=== PATIENT | female | born 1975 | race Caucasian/White ===

== ENCOUNTER → 2016-12-14 | Outpatient (CLI) | payer OTHER | LOC: FIMAGING 09:26 | PROVIDERS: ATTEND Family Medicine | DX: Z12.39 Encounter for other screening for malignant neoplasm of breast (principal); R92.8 Other abnormal and inconclusive findings on diagnostic imaging of breast | CPT/HCPCS: G0204 ==

== ENCOUNTER → 2016-12-24 | Outpatient (CLI) | payer OTHER ==
[~2016-12-24] MED LIST: BUPIVACAINE 0.5% 10 ML SDV ONE; LIDO/EPI 1% **Not for Epidural 20 ML MDV ONE; LIDOCAINE 1% 300 MG/30 ML SDV ONE; THROMBIN (BOVINE) 5,000 UNIT VIAL TP ONE
== END ==
LOC: FIMAGING 07:11
PROVIDERS: ATTEND Family Medicine
PROC: BH01ZZZ Plain Radiography of Left Breast (ICD-10-PCS; principal; 2016-12-24)
PROC: 0HBU3ZX Excision of Left Breast, Percutaneous Approach, Diagnostic (ICD-10-PCS; principal; 2016-12-24)
DX: D24.2 Benign neoplasm of left breast (principal); N60.12 Diffuse cystic mastopathy of left breast; N60.22 Fibroadenosis of left breast
CPT/HCPCS: G0206

== ENCOUNTER 2018-04-18 17:40 | Emergency (ER) | payer OTHER ==
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
[2018-04-18] MEDS ORDERED: IBUPROFEN 800 MG TAB PO ONE ×2 (18:27→18:28)
[2018-04-18 19:36] VITALS: BP 117/68
== END 2018-04-18 19:35 | disposition home or self-care (01) ==
LOC: EDUNIT#
DX: S16.1XXA Strain of muscle, fascia and tendon at neck level, initial encounter (principal); S39.012A Strain of muscle, fascia and tendon of lower back, initial encounter; V44.1XXA Car passenger injured in collision with heavy transport vehicle or bus in nontraffic accident, initial encounter; Y92.410 Unspecified street and highway as the place of occurrence of the external cause